=== PATIENT | male | born 1995 | race Two or more races ===

== ENCOUNTER 2020-05-21 00:16 | Emergency (ER) | payer SELFPAY ==
[~2020-05-21] VITALS: Ht 190.5 cm; Wt 100.0 kg
--- NOTE | 2020-05-21 00:55 | NUR ---
pt in bed, dressed in gown, family at bedside. IV started in RAC, cultures and labs drawn. XRAY at bedside, followed by lab. IV fluids initiated. Pt resting at this time, denies any needs or concerns, call light in reach.
[2020-05-21] MEDS ORDERED: KETOROLAC 30 MG/1 ML IVPush ONE (01:00)
[2020-05-21] MEDS ORDERED: SODIUM CHLORIDE 0.9% 1,000ML IVBOLUS ONE (01:00)
[2020-05-21 01:27] LABS: BASOPHILS % (AUTO) 0 % (0-1); EOSINOPHILS % (AUTO) 0 % (1-7); LYMPHOCYTES % (AUTO) 9 % (22-44); MEAN CORPUSCULAR HEMOGLOBIN 31.8 pg (27.5-34.5); MEAN CORPUSCULAR HGB CONC 34.5 g/dL (33.2-36.2); MEAN PLATELET VOLUME 10.5 fL (7.4-10.4); MONOCYTES % (AUTO) 11 % (2-9); NEUTROPHILS % (AUTO) 80 % (42-75); PLATELET COUNT 88 x10^3/uL (130-400); RED BLOOD COUNT 4.81 x10^6/uL (4.38-5.82)
[2020-05-21 01:34] LABS: ALANINE AMINOTRANSFERASE 58 U/L (12-78); ALBUMIN 3.3 g/dL (3.4-5.0); ANION GAP 9 mmol/L (5-15); CALCIUM 8.7 mg/dL (8.5-10.1); CHLORIDE 97 mmol/L (98-107); CREATININE 1.05 mg/dL (0.7-1.3)
--- NOTE | 2020-05-21 01:34 | NUR ---
PT RESTING IN BED, FAMILY AT BEDSIDE. DENIES ANY NEEDS OR CONCERNS AT THIS TIME, CALL LIGHT IN REACH. PULSE 105 AFTER FIRST LITER BOLUS.
[2020-05-21 01:38] LABS: ALKALINE PHOSPHATASE 121 U/L (45-117); BILIRUBIN,TOTAL 0.8 mg/dL (0.2-1.0); TOTAL PROTEIN 7.2 g/dL (6.4-8.2); TROPONIN I < 0.015 ng/mL (0.000-0.045)
[2020-05-21 01:45] LABS: MD NO
[2020-05-21] MEDS ORDERED: KETOROLAC 30 MG/1 ML ONE (02:07)
--- NOTE | 2020-05-21 02:41 | NUR ---
BREAK RN; RE-EVALUATION DONE. PATIENT DISCHARGED WITH PRESCRIPTION AND INSTRUCTION. VERBALIZED UNDERSTANDING.
[2020-05-21 02:42] VITALS: BP 129/71
--- NOTE | 2020-05-21 16:46 | NUR ---
ATTEMPT TO CONTACT PT AT [phone] FOR POSITIVE BLOOD CULTURE RESULT, NO ANSWER AND UNABLE TO LEAVE VM DUE TO MAILBOX NOT SET UP.
--- NOTE | 2020-05-24 08:20 | NUR ---
3RD ATTEMPT TO CONTACT PT REGARDING POSITIVE BLOOD CULURES AND NEED TO RETURN TO ED. LETTER SENT TO ADDRESS ON FILE.
== END 2020-05-21 02:48 | disposition home or self-care (01) ==
LOC: ED 02:15
DX: E86.0 Dehydration (principal); E87.1 Hypo-osmolality and hyponatremia; R00.0 Tachycardia, unspecified; M79.10 Myalgia, unspecified site; Z87.891 Personal history of nicotine dependence
CPT/HCPCS: 36415; 71045; 80053; 83605; 84145; 84484; 85025; 87040; 87077; 93005; 96361; 96374; 99285; J1885; J7030; 87186

== ENCOUNTER 2020-05-24 12:15 | Inpatient (IN) | payer OTHER ==
[~2020-05-24] VITALS: Ht 193 cm; Wt 89.8 kg
[2020-05-24] MEDS ORDERED: ACETAMINOPHEN 500 MG TABLET ONE (12:29)
--- NOTE | 2020-05-24 12:32 | NUR ---
PT MEDICATED W/ 1000MG TYLENOL PO, VERBAL ORDER RECEIVED FROM .
[2020-05-24] MEDS ORDERED: CEFTRIAXONE PMX 1GM/50ML 50 ML ONE (12:42)
--- NOTE | 2020-05-24 12:57 | NUR ---
PT C/O CHEST PAIN, HEADACHE, HEART RACING, AND FEVER X 10 DAYS. PT WAS SEEN AT ED AND WAS DISCHARGED. PT DOES NOT REMEMBER WHAT HE WAS TOLD ON THAT VISIT AND HIS MOM HAS THE PAPERWORK. PT WAS NEGATIVE FOR COVID 10 DAYS AGO. PT DENIES SOB.
--- NOTE | 2020-05-24 12:59 | NUR ---
PT MEDICATED PER MAR
[2020-05-24] MEDS ORDERED: CEFTRIAXONE PMX 1GM/50ML 50 ML IVPB ONE (13:00)
[2020-05-24] MEDS ORDERED: SODIUM CHLORIDE 0.9% 1,000ML IVBOLUS ONE (13:00)
[2020-05-24] MEDS ORDERED: SODIUM CHLORIDE FLUSH 10ML SYR IVF ONE (13:00)
[2020-05-24] MEDS ORDERED: ACETAMINOPHEN 500 MG TABLET PO ONE (13:00)
[2020-05-24 13:07] LABS: BASOPHILS % (AUTO) 0 % (0-1); EOSINOPHILS % (AUTO) 0 % (1-7); LYMPHOCYTES % (AUTO) 9 % (22-44); MEAN CORPUSCULAR HEMOGLOBIN 31.4 pg (27.5-34.5); MEAN CORPUSCULAR HGB CONC 33.8 g/dL (33.2-36.2); MEAN PLATELET VOLUME 9.2 fL (7.4-10.4); MONOCYTES % (AUTO) 17 % (2-9); NEUTROPHILS % (AUTO) 74 % (42-75); PLATELET COUNT 282 x10^3/uL (130-400); RED BLOOD COUNT 4.65 x10^6/uL (4.38-5.82); RED CELL DISTRIBUTION WIDTH 13.8 % (9.4-14.8)
[2020-05-24 13:13] LABS: ALANINE AMINOTRANSFERASE 63 U/L (12-78); ALBUMIN 2.8 g/dL (3.4-5.0); ANION GAP 4 mmol/L (5-15); CALCIUM 8.4 mg/dL (8.5-10.1); CHLORIDE 103 mmol/L (98-107); CREATININE 1.02 mg/dL (0.7-1.3)
[2020-05-24 13:18] LABS: ALKALINE PHOSPHATASE 219 U/L (45-117); BILIRUBIN,TOTAL 0.7 mg/dL (0.2-1.0); TOTAL PROTEIN 6.9 g/dL (6.4-8.2); TROPONIN I < 0.015 ng/mL (0.000-0.045)
[2020-05-24 13:38] LABS: MD SCAN
[2020-05-24] MEDS ORDERED: KETOROLAC 30 MG/1 ML IVPush ONE (14:00)
--- NOTE | 2020-05-24 14:28 | NUR ---
Received report from Camille. patient is sleeping, vital signs stable.
--- NOTE | 2020-05-24 15:40 | NUR ---
CALLED EDELMIRA TROY TO REPORT BP 87/45. ORDERS GIVEN FOR 1L NS BOLUS THEN CONTINUE WITH MAINTENANCE FLUIDS (ALREADY ORDERED).
[2020-05-24 15:46] LABS: D-DIMER (DIC) 0.84 ug/mlFEU (0.00-0.52)
[2020-05-24] MEDS: SODIUM CHLORIDE 0.9% 1,000 ML IV SCH ×8 (15:57→23:00)
[2020-05-24] MEDS ORDERED: SODIUM CHLORIDE 0.9% 1,000 ML IV SCH (16:00)
[2020-05-24] MEDS ORDERED: ONDANSETRON 2MG/ML, 2ML IVPush PRN (16:00)
[2020-05-24] MEDS ORDERED: ONDANSETRON ODT 4 MG PO PRN (16:00)
--- NOTE | 2020-05-24 16:00 | NUR ---
REASSUMED CARE OF PT. 2000 ML BOLUS COMPLETE.
[2020-05-24 16:10] LABS: HCT (SEDRATE) 43.2 % (39.2-51.8)
[2020-05-24] MEDS ORDERED: ENOXAPARIN 40 MG/0.4 ML ONE (16:10)
[2020-05-24] MEDS ORDERED: ASCORBIC ACID 500 MG TABLET ONE ×2 (16:10→16:15)
[2020-05-24] MEDS: ASCORBIC ACID 500 MG TABLET PO SCH (16:12)
[2020-05-24] MEDS: ENOXAPARIN 40 MG/0.4 ML SQ SCH (16:13)
[2020-05-24 16:16] LABS: MICROSCOPIC NOT IND
[2020-05-24] MEDS ORDERED: NICOTINE 21 MG/24 HR PATCH.TD24 TD ONE (16:30)
--- NOTE | 2020-05-24 16:30 | NUR ---
OFF THE FLOOR TO XRAY
[2020-05-24] MEDS ORDERED: OMNIPAQUE 350 MG/ML, 75ML BOTTLE ONE (16:49)
--- NOTE | 2020-05-24 16:57 | NUR ---
SPOKE WITH PROVIDER SYDNI AND THE PT IS BEING PLACED ON [place].
[2020-05-24] MEDS ORDERED: VANCOMYCIN 2,500 MG in SODIUM CHLORIDE 0.9% 500 ML IV ONE (17:00)
[2020-05-24] MEDS ORDERED: VANCOMYCIN PER PHARMACY MC PRN (17:00)
[2020-05-24] MEDS ORDERED: PIPERACILLIN/TAZO/PMX 3.375GM 50 ML IV SCH (17:00)
--- NOTE | 2020-05-24 17:05 | NUR ---
SPOKE WITH HOSPITALIST ABOUT PT'S FLUCTUATION IN BP AND SEPSIS PROTOCOL. HOSPITALIST ORDERING ABX.
[2020-05-24] MEDS ORDERED: NICOTINE 21 MG/24 HR PATCH.TD24 ONE (17:09)
--- NOTE | 2020-05-24 17:24 | NUR ---
PT MEDICATED PER MAR. PT REFUSING NICOTINE PATCH.
[2020-05-24] MEDS ORDERED: PHARMACOKINETIC MONITORING MC PRN (17:30)
[2020-05-24 17:46] LABS: AMPHETAMINE SCREEN, URINE Negative (Negative); BARBITURATE SCREEN, URINE Negative (Negative); BENZODIAZEPINE SCREEN, URINE Negative (Negative); CANNABINOID SCREEN, URINE Negative (Negative); COCAINE SCREEN, URINE Negative (Negative); METHADONE SCREEN, URINE Negative (Negative); OPIATE SCREEN, URINE Negative (Negative)
[2020-05-24] MEDS ORDERED: CEFAZOLIN 2,000 MG in SODIUM CHLORIDE 0.9% 50 ML IV SCH (18:30)
--- NOTE | 2020-05-24 19:00 | NUR ---
Report received from NELLY Graham. This RN to assume care. Meds to be admin.
[2020-05-24] MEDS: CEFAZOLIN PMX 2GM/50ML 50 ML IVPB SCH (19:15)
--- NOTE | 2020-05-24 19:15 | NUR ---
Meds admin per jul. Patient c/o restlessness and fatigue. Patient states he has not slept in three days. Contacted hospitalist for sleep aid.
--- NOTE | 2020-05-24 20:15 | NUR ---
Patient sleeping in gurney. Respirations even and unlabored.
[2020-05-24] MEDS ORDERED: MELATONIN 5 MG TABLET ONE (20:23)
[2020-05-24] MEDS: MELATONIN 5 MG TABLET PO SCH (21:52)
--- NOTE | 2020-05-24 21:52 | NUR ---
Admin meds per jul. Provided water. No other needs at this time. Requested hospital bed.
--- NOTE | 2020-05-24 23:15 | NUR ---
Patient sleeping in gurney. Respirations even and unlabored.
--- NOTE | 2020-05-25 00:55 | NUR ---
Patient sleeping in gurney. Respirations even and unlabored.
[2020-05-25] MEDS: SODIUM CHLORIDE 0.9% 1,000 ML IV SCH ×10 (01:00→09:00)
--- NOTE | 2020-05-25 01:39 | NUR ---
break rn: pt resting on hospital bed, nad, eyes closed, even and unlabored respirations noted at this time. lights off for comfort, bed in lowest, call light next to pt, [facility]. waiting for admit bed
--- NOTE | 2020-05-25 02:40 | NUR ---
Patient restless in [facility]. Respirations even and unlabored. Awaiting hospital bed.
[2020-05-25] MEDS: CEFAZOLIN PMX 2GM/50ML 50 ML IVPB SCH ×3 (02:48→17:52)
[2020-05-25] MEDS ORDERED: ACETAMINOPHEN 325 MG TABLET ONE (03:24)
[2020-05-25] MEDS: ACETAMINOPHEN 325 MG TABLET PO PRN ×3 (03:27→16:20)
--- NOTE | 2020-05-25 03:45 | NUR ---
Transferred patient to hospital bed. Patient skin hot. Fever noted. Meds admin per jul. Water provided.
--- NOTE | 2020-05-25 04:02 | NUR ---
Critical lab- + blood cultures in both bottles. Gram + cocci in clusters
[2020-05-25 05:37] LABS: BASOPHILS % (AUTO) 0 % (0-1); EOSINOPHILS % (AUTO) 1 % (1-7); LYMPHOCYTES % (AUTO) 11 % (22-44); MEAN CORPUSCULAR HEMOGLOBIN 31.8 pg (27.5-34.5); MEAN CORPUSCULAR HGB CONC 34.1 g/dL (33.2-36.2); MEAN PLATELET VOLUME 8.4 fL (7.4-10.4); MONOCYTES % (AUTO) 17 % (2-9); NEUTROPHILS % (AUTO) 71 % (42-75); PLATELET COUNT 221 x10^3/uL (130-400); RED BLOOD COUNT 3.92 x10^6/uL (4.38-5.82); RED CELL DISTRIBUTION WIDTH 13.7 % (9.4-14.8)
[2020-05-25 05:43] LABS: ALBUMIN 2.3 g/dL (3.4-5.0); ANION GAP 5 mmol/L (5-15); CALCIUM 7.9 mg/dL (8.5-10.1); CHLORIDE 106 mmol/L (98-107)
[2020-05-25 05:49] LABS: ALANINE AMINOTRANSFERASE 41 U/L (12-78); ALKALINE PHOSPHATASE 162 U/L (45-117); BILIRUBIN,TOTAL 0.7 mg/dL (0.2-1.0); CREATININE 0.92 mg/dL (0.7-1.3); TOTAL PROTEIN 5.8 g/dL (6.4-8.2)
[2020-05-25 06:18] LABS: MD SCAN
--- NOTE | 2020-05-25 07:11 | NUR ---
REPORT FROM JQ, ASSUME CARE OF PT AT THIS TIME.
[2020-05-25] MEDS ORDERED: SODIUM CHLORIDE 0.9% 1,000 ML IV SCH (07:30)
--- NOTE | 2020-05-25 07:30 | NUR ---
REPORT TO RN, PT READY TO BE TRANSPORTED TO [facility]
--- NOTE | 2020-05-25 08:11 | NUR ---
CALL FROM LAB REGARDING +BLOOD CULTURE. CALL TO FLOOR TO NOTIFY, CULTURE RESULT REPORTED TO ISI VILLEGAS.
[2020-05-25] MEDS: CHOLECALCIFEROL 5,000u TAB PO SCH (08:40)
[2020-05-25] MEDS: ASCORBIC ACID 500 MG TABLET PO SCH ×2 (08:40→16:20)
[2020-05-25] MEDS: ZINC SULFATE 220 MG CAPSULE PO SCH (08:41)
[2020-05-25 08:46] VITALS: BP 147/70
[2020-05-25 09:13] VITALS: BP 147/70
[2020-05-25 13:29] VITALS: BP 103/58
[2020-05-25] MEDS: ENOXAPARIN 40 MG/0.4 ML SQ SCH (15:29)
[2020-05-25 17:57] VITALS: BP 112/53
[2020-05-25 20:06] VITALS: BP 117/60
[2020-05-25] MEDS: MELATONIN 5 MG TABLET PO SCH (20:08)
[2020-05-26 02:08] VITALS: BP 133/55
[2020-05-26] MEDS: ACETAMINOPHEN 325 MG TABLET PO PRN ×3 (02:19→18:01)
[2020-05-26] MEDS: SODIUM CHLORIDE 0.9% 1,000 ML IV SCH ×3 (02:19→18:02)
[2020-05-26] MEDS: CEFAZOLIN PMX 2GM/50ML 50 ML IVPB SCH ×3 (02:45→18:02)
[2020-05-26 08:13] VITALS: BP 127/73
[2020-05-26] MEDS: ASCORBIC ACID 500 MG TABLET PO SCH ×2 (11:04→15:27)
[2020-05-26] MEDS: CHOLECALCIFEROL 5,000u TAB PO SCH (11:04)
[2020-05-26] MEDS: ZINC SULFATE 220 MG CAPSULE PO SCH (11:04)
[2020-05-26 13:35] VITALS: BP 110/54
[2020-05-26] MEDS: ENOXAPARIN 40 MG/0.4 ML SQ SCH (15:27)
[2020-05-26] MEDS: MELATONIN 5 MG TABLET PO SCH (20:29)
[2020-05-26 20:34] VITALS: BP 144/52
[2020-05-27 00:20] VITALS: BP 139/53
[2020-05-27] MEDS: ACETAMINOPHEN 325 MG TABLET PO PRN ×2 (00:21→11:25)
[2020-05-27] MEDS: CEFAZOLIN PMX 2GM/50ML 50 ML IVPB SCH ×3 (02:17→19:48)
[2020-05-27] MEDS: SODIUM CHLORIDE 0.9% 1,000 ML IV SCH ×3 (02:17→19:48)
[2020-05-27 05:11] LABS: BASOPHILS % (AUTO) 0 % (0-1); EOSINOPHILS % (AUTO) 0 % (1-7); LYMPHOCYTES % (AUTO) 13 % (22-44); MEAN CORPUSCULAR HEMOGLOBIN 31.3 pg (27.5-34.5); MEAN CORPUSCULAR HGB CONC 33.2 g/dL (33.2-36.2); MEAN PLATELET VOLUME 7.8 fL (7.4-10.4); MONOCYTES % (AUTO) 13 % (2-9); NEUTROPHILS % (AUTO) 73 % (42-75); PLATELET COUNT 246 x10^3/uL (130-400); RED BLOOD COUNT 3.91 x10^6/uL (4.38-5.82); RED CELL DISTRIBUTION WIDTH 13.5 % (9.4-14.8)
[2020-05-27 05:19] LABS: ANION GAP 5 mmol/L (5-15); CALCIUM 8.2 mg/dL (8.5-10.1); CHLORIDE 106 mmol/L (98-107); CREATININE 0.92 mg/dL (0.7-1.3)
[2020-05-27 05:49] LABS: MD SCAN
[2020-05-27 08:58] VITALS: BP 133/56
[2020-05-27] MEDS: KETOROLAC 30 MG/1 ML IV PRN (10:53)
[2020-05-27] MEDS: CHOLECALCIFEROL 5,000u TAB PO SCH (11:24)
[2020-05-27] MEDS: ASCORBIC ACID 500 MG TABLET PO SCH ×2 (11:24→16:33)
[2020-05-27] MEDS: ZINC SULFATE 220 MG CAPSULE PO SCH (11:25)
[2020-05-27 14:20] VITALS: BP 103/57
[2020-05-27] MEDS: ENOXAPARIN 40 MG/0.4 ML SQ SCH (16:33)
[2020-05-27 19:22] VITALS: BP 109/62
[2020-05-27] MEDS: MELATONIN 5 MG TABLET PO SCH (19:56)
[2020-05-28 01:30] VITALS: BP 100/51
[2020-05-28] MEDS: CEFAZOLIN PMX 2GM/50ML 50 ML IVPB SCH ×3 (03:36→19:43)
[2020-05-28] MEDS: SODIUM CHLORIDE 0.9% 1,000 ML IV SCH ×3 (03:36→19:43)
[2020-05-28 06:39] LABS: BASOPHILS % (AUTO) 0 % (0-1); EOSINOPHILS % (AUTO) 0 % (1-7); LYMPHOCYTES % (AUTO) 12 % (22-44); MEAN CORPUSCULAR HEMOGLOBIN 31.3 pg (27.5-34.5); MEAN CORPUSCULAR HGB CONC 33.4 g/dL (33.2-36.2); MEAN PLATELET VOLUME 7.8 fL (7.4-10.4); MONOCYTES % (AUTO) 10 % (2-9); NEUTROPHILS % (AUTO) 78 % (42-75); PLATELET COUNT 260 x10^3/uL (130-400); RED BLOOD COUNT 3.81 x10^6/uL (4.38-5.82); RED CELL DISTRIBUTION WIDTH 13.7 % (9.4-14.8)
[2020-05-28 06:47] LABS: ANION GAP 6 mmol/L (5-15); CALCIUM 8.3 mg/dL (8.5-10.1); CHLORIDE 108 mmol/L (98-107); CREATININE 0.79 mg/dL (0.7-1.3)
[2020-05-28 06:54] LABS: MD NO
[2020-05-28] MEDS: CHOLECALCIFEROL 5,000u TAB PO SCH (08:54)
[2020-05-28] MEDS: ASCORBIC ACID 500 MG TABLET PO SCH ×2 (08:54→16:36)
[2020-05-28] MEDS: ZINC SULFATE 220 MG CAPSULE PO SCH (08:54)
[2020-05-28 09:01] VITALS: BP 116/51
[2020-05-28 13:48] VITALS: BP 117/55
[2020-05-28] MEDS: ENOXAPARIN 40 MG/0.4 ML SQ SCH (16:00)
[2020-05-28] MEDS: MELATONIN 5 MG TABLET PO SCH (19:43)
[2020-05-28 19:46] VITALS: BP 115/64
[2020-05-29 00:57] VITALS: BP 153/82
[2020-05-29] MEDS: CEFAZOLIN PMX 2GM/50ML 50 ML IVPB SCH ×3 (03:08→20:01)
[2020-05-29] MEDS: SODIUM CHLORIDE 0.9% 1,000 ML IV SCH ×3 (03:08→20:02)
[2020-05-29 05:44] LABS: BASOPHILS % (AUTO) 0 % (0-1); EOSINOPHILS % (AUTO) 0 % (1-7); LYMPHOCYTES % (AUTO) 13 % (22-44); MEAN CORPUSCULAR HEMOGLOBIN 31.5 pg (27.5-34.5); MEAN CORPUSCULAR HGB CONC 33.9 g/dL (33.2-36.2); MEAN PLATELET VOLUME 7.8 fL (7.4-10.4); MONOCYTES % (AUTO) 9 % (2-9); NEUTROPHILS % (AUTO) 77 % (42-75); PLATELET COUNT 298 x10^3/uL (130-400); RED BLOOD COUNT 3.91 x10^6/uL (4.38-5.82); RED CELL DISTRIBUTION WIDTH 13.5 % (9.4-14.8)
[2020-05-29 05:49] LABS: MD NO
[2020-05-29 05:52] LABS: ANION GAP 6 mmol/L (5-15); CALCIUM 8.9 mg/dL (8.5-10.1); CHLORIDE 107 mmol/L (98-107)
[2020-05-29 05:55] LABS: CREATININE 0.78 mg/dL (0.7-1.3)
[2020-05-29] MEDS: ASCORBIC ACID 500 MG TABLET PO SCH ×2 (08:00→16:03)
[2020-05-29 08:20] VITALS: BP 134/55
[2020-05-29] MEDS: ZINC SULFATE 220 MG CAPSULE PO SCH (09:00)
[2020-05-29] MEDS: CHOLECALCIFEROL 5,000u TAB PO SCH (09:00)
[2020-05-29] MEDS: KETOROLAC 30 MG/1 ML IV PRN (09:22)
[2020-05-29 13:09] VITALS: BP 108/51
[2020-05-29] MEDS: ENOXAPARIN 40 MG/0.4 ML SQ SCH (16:01)
[2020-05-29 19:56] VITALS: BP 122/67
[2020-05-29] MEDS: MELATONIN 5 MG TABLET PO SCH (20:01)
[2020-05-30 01:19] VITALS: BP_SYST 120; BP_SYST 99; BP_DIAS 50; BP_DIAS 68
[2020-05-30] MEDS: SODIUM CHLORIDE 0.9% 1,000 ML IV SCH ×3 (03:16→17:09)
[2020-05-30] MEDS: CEFAZOLIN PMX 2GM/50ML 50 ML IVPB SCH ×3 (03:16→20:41)
[2020-05-30 06:15] LABS: BASOPHILS % (AUTO) 0 % (0-1); EOSINOPHILS % (AUTO) 1 % (1-7); LYMPHOCYTES % (AUTO) 13 % (22-44); MEAN CORPUSCULAR HGB CONC 34.2 g/dL (33.2-36.2); MEAN PLATELET VOLUME 7.9 fL (7.4-10.4); MONOCYTES % (AUTO) 8 % (2-9); NEUTROPHILS % (AUTO) 79 % (42-75); PLATELET COUNT 285 x10^3/uL (130-400); RED BLOOD COUNT 3.65 x10^6/uL (4.38-5.82); RED CELL DISTRIBUTION WIDTH 13.4 % (9.4-14.8)
[2020-05-30 06:18] LABS: ANION GAP 5 mmol/L (5-15); CALCIUM 8.9 mg/dL (8.5-10.1); CHLORIDE 109 mmol/L (98-107); CREATININE 0.76 mg/dL (0.7-1.3)
[2020-05-30 06:49] LABS: MD NO
[2020-05-30 07:30] VITALS: BP 135/55
[2020-05-30] MEDS: ASCORBIC ACID 500 MG TABLET PO SCH ×2 (08:00→15:38)
[2020-05-30] MEDS ORDERED: SODIUM CHLORIDE 0.9% 1,000 ML IV ONE (08:00)
[2020-05-30] MEDS: CHOLECALCIFEROL 5,000u TAB PO SCH (09:00)
[2020-05-30] MEDS: ZINC SULFATE 220 MG CAPSULE PO SCH (09:00)
[2020-05-30] MEDS ORDERED: PROPOFOL 10 MG/ML, 20ML ONE (13:12)
[2020-05-30 14:30] VITALS: BP 114/54
[2020-05-30] MEDS: ENOXAPARIN 40 MG/0.4 ML SQ SCH (15:39)
[2020-05-30] MEDS ORDERED: OMNIPAQUE 350 MG/ML, 150 ML BOTTLE ONE (17:00)
[2020-05-30 17:56] VITALS: BP 119/70
[2020-05-30 19:32] VITALS: BP 105/55
[2020-05-30] MEDS: MELATONIN 5 MG TABLET PO SCH (20:40)
[2020-05-31 02:01] VITALS: BP 96/52
[2020-05-31] MEDS: CEFAZOLIN PMX 2GM/50ML 50 ML IVPB SCH ×3 (03:31→20:11)
[2020-05-31] MEDS: SODIUM CHLORIDE 0.9% 1,000 ML IV SCH ×3 (03:31→22:59)
[2020-05-31 07:35] VITALS: BP 126/61
[2020-05-31] MEDS: CHOLECALCIFEROL 5,000u TAB PO SCH (08:50)
[2020-05-31] MEDS: ZINC SULFATE 220 MG CAPSULE PO SCH (08:50)
[2020-05-31] MEDS: ASCORBIC ACID 500 MG TABLET PO SCH (08:50)
[2020-05-31 13:05] VITALS: BP 128/54
[2020-05-31 14:00] VITALS: BP 144/70
[2020-05-31] MEDS: ENOXAPARIN 40 MG/0.4 ML SQ SCH (16:46)
[2020-05-31 20:19] VITALS: BP 131/60
[2020-05-31] MEDS ORDERED: MELATONIN 5 MG TABLET PO PRN (21:30)
[2020-06-01 03:56] VITALS: BP 85/44
[2020-06-01] MEDS: CEFAZOLIN PMX 2GM/50ML 50 ML IVPB SCH ×3 (04:08→20:01)
[2020-06-01 05:38] VITALS: BP 125/89
[2020-06-01 05:50] LABS: BASOPHILS % (AUTO) 1 % (0-1); EOSINOPHILS % (AUTO) 1 % (1-7); LYMPHOCYTES % (AUTO) 17 % (22-44); MEAN CORPUSCULAR HEMOGLOBIN 31.7 pg (27.5-34.5); MEAN CORPUSCULAR HGB CONC 33.7 g/dL (33.2-36.2); MEAN PLATELET VOLUME 7.7 fL (7.4-10.4); MONOCYTES % (AUTO) 9 % (2-9); NEUTROPHILS % (AUTO) 73 % (42-75); PLATELET COUNT 303 x10^3/uL (130-400); RED BLOOD COUNT 3.64 x10^6/uL (4.38-5.82); RED CELL DISTRIBUTION WIDTH 13.3 % (9.4-14.8)
[2020-06-01 05:52] LABS: MD NO
[2020-06-01 06:01] LABS: CHLORIDE 106 mmol/L (98-107)
[2020-06-01 06:09] LABS: ALANINE AMINOTRANSFERASE 72 U/L (12-78); ALBUMIN 2.2 g/dL (3.4-5.0); ALKALINE PHOSPHATASE 181 U/L (45-117); ANION GAP 6 mmol/L (5-15); BILIRUBIN,TOTAL 0.4 mg/dL (0.2-1.0); CREATININE 0.82 mg/dL (0.7-1.3); TOTAL PROTEIN 6.2 g/dL (6.4-8.2)
[2020-06-01 06:45] VITALS: BP 121/84
[2020-06-01] MEDS: SODIUM CHLORIDE 0.9% 1,000 ML IV SCH (08:18)
[2020-06-01] MEDS ORDERED: POLYETHYLENE GLYCOL 17 GM PACKET PO PRN (09:00)
[2020-06-01 13:49] VITALS: BP 116/61
[2020-06-01] MEDS: ENOXAPARIN 40 MG/0.4 ML SQ SCH (17:17)
[2020-06-01 19:34] VITALS: BP 102/55
[2020-06-02 01:48] VITALS: BP 110/60
[2020-06-02] MEDS: CEFAZOLIN PMX 2GM/50ML 50 ML IVPB SCH ×3 (04:56→20:22)
[2020-06-02] MEDS: DOCUSATE 100 MG CAPSULE PO PRN (05:01)
[2020-06-02 05:30] LABS: BASOPHILS % (AUTO) 0 % (0-1); EOSINOPHILS % (AUTO) 1 % (1-7); LYMPHOCYTES % (AUTO) 18 % (22-44); MEAN CORPUSCULAR HEMOGLOBIN 31.8 pg (27.5-34.5); MEAN CORPUSCULAR HGB CONC 33.4 g/dL (33.2-36.2); MEAN PLATELET VOLUME 7.7 fL (7.4-10.4); MONOCYTES % (AUTO) 9 % (2-9); NEUTROPHILS % (AUTO) 73 % (42-75); PLATELET COUNT 320 x10^3/uL (130-400); RED BLOOD COUNT 3.75 x10^6/uL (4.38-5.82); RED CELL DISTRIBUTION WIDTH 13.3 % (9.4-14.8)
[2020-06-02 05:31] LABS: MD NO
[2020-06-02 05:44] LABS: ALANINE AMINOTRANSFERASE 74 U/L (12-78); ALBUMIN 2.2 g/dL (3.4-5.0); ANION GAP 3 mmol/L (5-15); CALCIUM 8.9 mg/dL (8.5-10.1); CHLORIDE 109 mmol/L (98-107); CREATININE 0.79 mg/dL (0.7-1.3)
[2020-06-02 05:46] LABS: ALKALINE PHOSPHATASE 187 U/L (45-117); BILIRUBIN,TOTAL 0.3 mg/dL (0.2-1.0); TOTAL PROTEIN 6.5 g/dL (6.4-8.2)
[2020-06-02 07:10] VITALS: BP 113/65
[2020-06-02] MEDS ORDERED: SODIUM CHLORIDE 0.9% 1,000 ML IV SCH (09:30)
[2020-06-02 14:08] VITALS: BP 116/55
[2020-06-02] MEDS: ENOXAPARIN 40 MG/0.4 ML SQ SCH (16:57)
[2020-06-02 20:00] VITALS: BP 122/52
[2020-06-03 02:30] VITALS: BP 110/56
[2020-06-03] MEDS: CEFAZOLIN PMX 2GM/50ML 50 ML IVPB SCH ×3 (03:39→20:20)
[2020-06-03 05:32] LABS: BASOPHILS % (AUTO) 0 % (0-1); EOSINOPHILS % (AUTO) 1 % (1-7); LYMPHOCYTES % (AUTO) 17 % (22-44); MEAN CORPUSCULAR HEMOGLOBIN 31.6 pg (27.5-34.5); MEAN CORPUSCULAR HGB CONC 33.8 g/dL (33.2-36.2); MEAN PLATELET VOLUME 7.6 fL (7.4-10.4); MONOCYTES % (AUTO) 8 % (2-9); NEUTROPHILS % (AUTO) 73 % (42-75); PLATELET COUNT 319 x10^3/uL (130-400); RED BLOOD COUNT 3.75 x10^6/uL (4.38-5.82); RED CELL DISTRIBUTION WIDTH 13.2 % (9.4-14.8)
[2020-06-03 05:33] LABS: MD NO
[2020-06-03 05:36] LABS: HCT (SEDRATE) 34.6 % (39.2-51.8)
[2020-06-03 05:39] LABS: ANION GAP 6 mmol/L (5-15); CALCIUM 9.2 mg/dL (8.5-10.1); CHLORIDE 109 mmol/L (98-107); CREATININE 0.87 mg/dL (0.7-1.3)
[2020-06-03 06:42] VITALS: BP 119/50
[2020-06-03 12:46] VITALS: BP 125/55
[2020-06-03] MEDS: ENOXAPARIN 40 MG/0.4 ML SQ SCH (16:00)
[2020-06-03 20:30] VITALS: BP 134/55
[2020-06-04 00:47] VITALS: BP 113/47
[2020-06-04] MEDS: CEFAZOLIN PMX 2GM/50ML 50 ML IVPB SCH ×3 (03:54→21:13)
[2020-06-04] MEDS: DOCUSATE 100 MG CAPSULE PO PRN (03:58)
[2020-06-04 08:15] VITALS: BP 103/51
[2020-06-04 13:56] VITALS: BP 109/58
[2020-06-04] MEDS: ENOXAPARIN 40 MG/0.4 ML SQ SCH (16:00)
[2020-06-04 20:11] VITALS: BP 106/61
[2020-06-05 03:40] VITALS: BP 93/44
[2020-06-05] MEDS: CEFAZOLIN PMX 2GM/50ML 50 ML IVPB SCH ×3 (04:40→21:24)
[2020-06-05 05:22] VITALS: BP 117/55
[2020-06-05 06:54] VITALS: BP 100/53
[2020-06-05] MEDS: DOCUSATE 100 MG CAPSULE PO PRN (07:30)
[2020-06-05] MEDS ORDERED: INSULIN LISPRO 100 UNITS/ML, PEN SQ-INSULIN SCH (10:00)
[2020-06-05] MEDS ORDERED: CHLORHEXIDINE 15 ML UDC MM PRN (10:00)
[2020-06-05 10:49] LABS: BASOPHILS % (AUTO) 1 % (0-1); EOSINOPHILS % (AUTO) 0 % (1-7); LYMPHOCYTES % (AUTO) 18 % (22-44); MD NO; MEAN CORPUSCULAR HEMOGLOBIN 32.2 pg (27.5-34.5); MEAN CORPUSCULAR HGB CONC 34.4 g/dL (33.2-36.2); MEAN PLATELET VOLUME 7.5 fL (7.4-10.4); MONOCYTES % (AUTO) 8 % (2-9); NEUTROPHILS % (AUTO) 73 % (42-75); PLATELET COUNT 384 x10^3/uL (130-400); RED BLOOD COUNT 3.92 x10^6/uL (4.38-5.82); RED CELL DISTRIBUTION WIDTH 13.2 % (9.4-14.8)
[2020-06-05 10:55] LABS: INTERNATIONAL NORMALIZED RATIO 1.12 (0.93-1.1); PROTHROMBIN TIME 11.9 Seconds (9.6-11.5)
[2020-06-05 11:01] LABS: ALBUMIN 2.7 g/dL (3.4-5.0); ANION GAP 5 mmol/L (5-15); CALCIUM 9.5 mg/dL (8.5-10.1); CHLORIDE 109 mmol/L (98-107)
[2020-06-05 11:05] LABS: ALANINE AMINOTRANSFERASE 64 U/L (12-78); ALKALINE PHOSPHATASE 178 U/L (45-117); BILIRUBIN,TOTAL 0.4 mg/dL (0.2-1.0); CREATININE 0.79 mg/dL (0.7-1.3); TOTAL PROTEIN 7.3 g/dL (6.4-8.2)
[2020-06-05 14:57] LABS: MICROSCOPIC NOT IND
[2020-06-05] MEDS: MUPIROCIN OINT 2%, 22GM TP SCH (21:24)
[2020-06-05] MEDS: SODIUM CHLORIDE FLUSH 10ML SYR IVF SCH (21:24)
[2020-06-05 21:34] VITALS: BP 98/57
[2020-06-06] MEDS: CEFAZOLIN PMX 2GM/50ML 50 ML IVPB SCH (04:00)
[2020-06-06 04:13] VITALS: BP 116/52
[2020-06-06 04:15] VITALS: BP 102/53
[2020-06-06] MEDS: DAPTOMYCIN 750 MG in SODIUM CHLORIDE 0.9% 100 ML IV SCH (05:22)
[2020-06-06] MEDS: MUPIROCIN OINT 2%, 22GM TP SCH (05:22)
[2020-06-06] MEDS ORDERED: PHENYLEPHRINE 10 MG/ML ONE (06:38)
[2020-06-06] MEDS ORDERED: EPINEPHRINE 1 MG/ML, 1ML ONE (06:38)
[2020-06-06] MEDS ORDERED: MIDAZOLAM 10MG/2 ML ONE (06:39)
[2020-06-06] MEDS ORDERED: FENTANYL PF 250 MCG/5ML ONE ×4 (06:39)
[2020-06-06] MEDS ORDERED: MANNITOL PMX 20% 500 ML IVPB PRN (07:30)
[2020-06-06] MEDS ORDERED: PHENYLEPHRINE 50 MG in SODIUM CHLORIDE 0.9% 245 ML IV PRN ×2 (07:30→14:00)
[2020-06-06] MEDS ORDERED: REGULAR INSULIN 100 UNITS in SODIUM CHLORIDE 0.9% 99 ML IV PRN ×2 (07:30→14:00)
[2020-06-06] MEDS ORDERED: VANCOMYCIN 1,400 MG in SODIUM CHLORIDE 0.9% 250 ML IVPB PRN (07:30)
[2020-06-06] MEDS ORDERED: ALBUMIN HUMAN 5% 500 ML IV PRN (07:30)
[2020-06-06] MEDS ORDERED: EPINEPHRINE 5 MG in SODIUM CHLORIDE 0.9% 245 ML IV PRN ×2 (07:30→14:00)
[2020-06-06] MEDS ORDERED: DEXMEDETOMIDINE 200 MCG in SODIUM CHLORIDE 0.9% 48 ML IV PRN ×2 (07:30→14:00)
[2020-06-06] MEDS ORDERED: POTASSIUM CHLORIDE 80 MEQ, SODIUM BICARBONATE 8.4% 10 MEQ, MAGNESIUM SULFATE 0.5 GM, LI... IV PRN (07:30)
[2020-06-06] MEDS ORDERED: CEFUROXIME 1.5 GM in SODIUM CHLORIDE 0.9% 50 ML IVPB PRN (07:30)
[2020-06-06] MEDS ORDERED: NOREPINEPHRINE 8 MG in SODIUM CHLORIDE 0.9% 242 ML IV PRN (08:30)
[2020-06-06] MEDS ORDERED: ROCURONIUM 10MG/ML,5ML ONE ×2 (08:30→10:25)
[2020-06-06] MEDS ORDERED: AMINOCAPROIC ACID 250 MG/ML, 20ML ONE ×2 (08:31)
[2020-06-06] MEDS ORDERED: PROPOFOL 10 MG/ML, 20ML ONE (08:31)
[2020-06-06] MEDS ORDERED: AMIODARONE 50 MG/ML, 3ML ONE ×2 (08:55→11:32)
[2020-06-06] MEDS ORDERED: PROTAMINE SULFATE 10 MG/ML, 25ML ONE ×2 (09:05)
[2020-06-06] MEDS: SODIUM CHLORIDE FLUSH 10ML SYR IVF SCH (10:27)
[2020-06-06] MEDS ORDERED: SODIUM BICARB 8.4%, 50ML SYRINGE ONE (12:09)
[2020-06-06 12:58] LABS: GLUCOSE BY BLOOD GAS ANALYZER 151 mg/dL (70-110); HEMOGLOBIN BY BLOOD GAS ANALYZ 10.5 g/dL (14.0-18.0); POTASSIUM BY BLOOD GAS ANALYZR 3.8 mmol/L (3.6-5.5)
[2020-06-06] MEDS ORDERED: ALBUMIN HUMAN 25% 50 ML ONE (13:04)
[2020-06-06] MEDS ORDERED: HEPARIN 1,000 UNITS/ML, 30ML ONE (13:04)
[2020-06-06] MEDS ORDERED: methylPREDNISolone SOD SUCC 125 MG/2 ML ONE (13:04)
[2020-06-06] MEDS ORDERED: LIDOCAINE-MPF 2% ,5ML ONE (13:04)
[2020-06-06 13:08] LABS: INTERNATIONAL NORMALIZED RATIO 1.36 (0.93-1.1); PROTHROMBIN TIME 14.4 Seconds (9.6-11.5)
[2020-06-06] MEDS ORDERED: DOBUTAMINE 250 MG in SODIUM CHLORIDE 0.9% 230 ML IV PRN (14:00)
[2020-06-06] MEDS ORDERED: VASOPRESSIN 20 UNIT in SODIUM CHLORIDE 0.9% 99 ML IV PRN (14:00)
[2020-06-06] MEDS ORDERED: FENTANYL PF 100 MCG/2ML IVPush PRN (14:00)
[2020-06-06] MEDS ORDERED: POTASSIUM CHLORIDE PMX 100 ML IV ONE (14:00)
[2020-06-06] MEDS ORDERED: BISACODYL 5 MG EC TABLET PO PRN (14:00)
[2020-06-06] MEDS ORDERED: SODIUM CHLORIDE 0.9% 1,000 ML IV PRN (14:00)
[2020-06-06] MEDS ORDERED: ACETAMINOPHEN 650 MG SUPP PR PRN (14:00)
[2020-06-06] MEDS ORDERED: INSULIN REGULAR 100 UNITS/ML, 3ML VIAL IVPush PRN (14:00)
[2020-06-06] MEDS ORDERED: ACETAMINOPHEN 325 MG TABLET PO PRN (14:00)
[2020-06-06] MEDS ORDERED: NITROGLYCERIN/D5W PMX 250 ML IV PRN (14:00)
[2020-06-06] MEDS ORDERED: BISACODYL 10 MG SUPP PR PRN (14:00)
[2020-06-06] MEDS ORDERED: MIDAZOLAM 1 MG/ML, 5ML IVPush PRN (14:00)
[2020-06-06] MEDS ORDERED: LACTATED RINGERS 1,000 ML IV PRN (14:00)
[2020-06-06] MEDS: KSCALE TO 4.5 IV SCH ×2 (14:00→19:59)
[2020-06-06] MEDS ORDERED: SODIUM BICARB 8.4%, 50ML SYRINGE IV PRN (14:00)
[2020-06-06] MEDS: DOCUSATE 100 MG CAPSULE PO SCH ×2 (14:29→21:09)
[2020-06-06] MEDS ORDERED: ALBUTEROL HFA 90 MCG/SPRAY INH PRN (15:00)
[2020-06-06] MEDS: OXYcodone IR 5MG TABLET PO PRN ×2 (15:33→19:29)
[2020-06-06] MEDS ORDERED: INSULIN LISPRO 100 UNITS/ML, PEN SQ-INSULIN SCH (16:00)
[2020-06-06] MEDS: MAGNESIUM SULFATE 1 GM in SODIUM CHLORIDE 0.9% 100 ML IVPB SCH (16:42)
[2020-06-06] MEDS: HYDROcodone/APAP 10/325 MG TABLET PO PRN ×2 (16:55→22:04)
[2020-06-06] MEDS: CEFUROXIME 1.5 GM in SODIUM CHLORIDE 0.9% 50 ML IVPB SCH (19:24)
[2020-06-06] MEDS: INSULIN LISPRO 100 UNITS/ML, PEN SQ-INSULIN SCH (20:00)
[2020-06-06] MEDS: VANCOMYCIN 1,400 MG in SODIUM CHLORIDE 0.9% 250 ML IVPB SCH (20:10)
[2020-06-06] MEDS: MUPIROCIN OINT 2%, 22GM NAS SCH (21:10)
[2020-06-07] MEDS: OXYcodone IR 5MG TABLET PO PRN ×3 (00:07→18:47)
[2020-06-07] MEDS: HYDROcodone/APAP 10/325 MG TABLET PO PRN ×2 (02:58→07:32)
[2020-06-07] MEDS: INSULIN LISPRO 100 UNITS/ML, PEN SQ-INSULIN SCH ×6 (04:00→20:00)
[2020-06-07] MEDS: DAPTOMYCIN 750 MG in SODIUM CHLORIDE 0.9% 100 ML IV SCH (04:36)
[2020-06-07 04:39] LABS: BASOPHILS % (AUTO) 0 % (0-1); EOSINOPHILS % (AUTO) 0 % (1-7); LYMPHOCYTES % (AUTO) 12 % (22-44); MEAN CORPUSCULAR HEMOGLOBIN 31.6 pg (27.5-34.5); MEAN CORPUSCULAR HGB CONC 33.6 g/dL (33.2-36.2); MEAN PLATELET VOLUME 7.6 fL (7.4-10.4); MONOCYTES % (AUTO) 10 % (2-9); NEUTROPHILS % (AUTO) 78 % (42-75); PLATELET COUNT 238 x10^3/uL (130-400); RED BLOOD COUNT 2.92 x10^6/uL (4.38-5.82); RED CELL DISTRIBUTION WIDTH 13.2 % (9.4-14.8)
[2020-06-07 04:43] LABS: MD NO
[2020-06-07 04:50] LABS: ALBUMIN 2.5 g/dL (3.4-5.0); ANION GAP 6 mmol/L (5-15); CALCIUM 8.4 mg/dL (8.5-10.1); CHLORIDE 108 mmol/L (98-107); CREATININE 0.59 mg/dL (0.7-1.3)
[2020-06-07 04:51] LABS: INTERNATIONAL NORMALIZED RATIO 1.19 (0.93-1.1); PROTHROMBIN TIME 12.6 Seconds (9.6-11.5)
[2020-06-07] MEDS: KSCALE TO 4.5 IV SCH ×2 (05:46)
[2020-06-07 06:00] VITALS: BP 114/61
[2020-06-07] MEDS: CEFUROXIME 1.5 GM in SODIUM CHLORIDE 0.9% 50 ML IVPB SCH (07:07)
[2020-06-07] MEDS: VANCOMYCIN 1,400 MG in SODIUM CHLORIDE 0.9% 250 ML IVPB SCH (08:28)
[2020-06-07] MEDS: MUPIROCIN OINT 2%, 22GM NAS SCH ×2 (08:29→21:15)
[2020-06-07] MEDS: DOCUSATE 100 MG CAPSULE PO SCH ×2 (08:29→21:15)
[2020-06-07] MEDS: ASPIRIN 81 MG TABLET EC PO SCH (08:29)
[2020-06-07] MEDS: CARVEDILOL 3.125 MG TABLET PO SCH ×2 (08:31→18:38)
[2020-06-07] MEDS: KETOROLAC 30 MG/1 ML IVPush SCH ×3 (08:58→21:14)
[2020-06-07] MEDS: CLOPIDOGREL 75 MG TABLET PO SCH (09:21)
[2020-06-07] MEDS: MAGNESIUM SULFATE 1 GM in SODIUM CHLORIDE 0.9% 100 ML IVPB SCH (15:38)
[2020-06-07] MEDS: CHLORHEXIDINE 15 ML UDC MM SCH (21:15)
[2020-06-08] MEDS: KETOROLAC 30 MG/1 ML IVPush SCH ×4 (03:16→21:25)
[2020-06-08] MEDS: INSULIN LISPRO 100 UNITS/ML, PEN SQ-INSULIN SCH ×6 (04:00→21:33)
[2020-06-08] MEDS: DAPTOMYCIN 750 MG in SODIUM CHLORIDE 0.9% 100 ML IV SCH (04:13)
[2020-06-08 04:47] LABS: BASOPHILS % (AUTO) 0 % (0-1); EOSINOPHILS % (AUTO) 1 % (1-7); LYMPHOCYTES % (AUTO) 22 % (22-44); MEAN CORPUSCULAR HEMOGLOBIN 31.5 pg (27.5-34.5); MEAN CORPUSCULAR HGB CONC 33.4 g/dL (33.2-36.2); MEAN PLATELET VOLUME 7.8 fL (7.4-10.4); MONOCYTES % (AUTO) 9 % (2-9); NEUTROPHILS % (AUTO) 68 % (42-75); PLATELET COUNT 199 x10^3/uL (130-400); RED BLOOD COUNT 2.55 x10^6/uL (4.38-5.82); RED CELL DISTRIBUTION WIDTH 12.7 % (9.4-14.8)
[2020-06-08 04:48] LABS: INTERNATIONAL NORMALIZED RATIO 1.1 (0.93-1.1); PROTHROMBIN TIME 11.7 Seconds (9.6-11.5)
[2020-06-08 04:50] LABS: ANION GAP 4 mmol/L (5-15); CALCIUM 8.8 mg/dL (8.5-10.1); CHLORIDE 107 mmol/L (98-107); CREATININE 0.76 mg/dL (0.7-1.3)
[2020-06-08 04:53] LABS: MD NO
[2020-06-08 06:00] VITALS: BP 97/53
[2020-06-08] MEDS: CARVEDILOL 3.125 MG TABLET PO SCH ×3 (06:21→18:28)
[2020-06-08] MEDS: OXYcodone IR 5MG TABLET PO PRN (06:36)
[2020-06-08] MEDS: CHLORHEXIDINE 15 ML UDC MM SCH ×2 (08:52→21:26)
[2020-06-08] MEDS: ASPIRIN 81 MG TABLET EC PO SCH (08:52)
[2020-06-08] MEDS: DOCUSATE 100 MG CAPSULE PO SCH ×2 (08:52→21:25)
[2020-06-08] MEDS: CLOPIDOGREL 75 MG TABLET PO SCH (08:53)
[2020-06-08] MEDS: MUPIROCIN OINT 2%, 22GM NAS SCH ×2 (09:00→21:26)
[2020-06-08] MEDS: MAGNESIUM SULFATE 1 GM in SODIUM CHLORIDE 0.9% 100 ML IVPB SCH (13:18)
[2020-06-08 18:11] VITALS: BP 117/78
[2020-06-08] MEDS: HYDROcodone/APAP 5/325 TABLET PO PRN (18:32)
[2020-06-08 19:20] VITALS: BP 117/76
[2020-06-09 00:10] VITALS: BP 122/77
[2020-06-09] MEDS: KETOROLAC 30 MG/1 ML IVPush SCH ×4 (03:33→19:58)
[2020-06-09] MEDS: DAPTOMYCIN 750 MG in SODIUM CHLORIDE 0.9% 100 ML IV SCH (03:41)
[2020-06-09 04:05] LABS: BASOPHILS % (AUTO) 1 % (0-1); EOSINOPHILS % (AUTO) 1 % (1-7); LYMPHOCYTES % (AUTO) 32 % (22-44); MEAN CORPUSCULAR HEMOGLOBIN 31.8 pg (27.5-34.5); MEAN PLATELET VOLUME 7.5 fL (7.4-10.4); MONOCYTES % (AUTO) 8 % (2-9); NEUTROPHILS % (AUTO) 59 % (42-75); PLATELET COUNT 241 x10^3/uL (130-400); RED BLOOD COUNT 2.47 x10^6/uL (4.38-5.82); RED CELL DISTRIBUTION WIDTH 12.9 % (9.4-14.8)
[2020-06-09 04:06] LABS: MD NO
[2020-06-09 04:13] LABS: ANION GAP 4 mmol/L (5-15); CALCIUM 8.9 mg/dL (8.5-10.1); CHLORIDE 110 mmol/L (98-107); CREATININE 0.72 mg/dL (0.7-1.3)
[2020-06-09] MEDS ORDERED: ASPIRIN 81 MG TABLET EC PO SCH (06:00)
[2020-06-09] MEDS: CARVEDILOL 3.125 MG TABLET PO SCH ×2 (06:21→18:16)
[2020-06-09] MEDS: INSULIN LISPRO 100 UNITS/ML, PEN SQ-INSULIN SCH (07:00)
[2020-06-09 07:59] VITALS: BP 126/80
[2020-06-09] MEDS: CHLORHEXIDINE 15 ML UDC MM SCH (09:01)
[2020-06-09] MEDS: MUPIROCIN OINT 2%, 22GM NAS SCH ×2 (09:01→19:58)
[2020-06-09] MEDS: CLOPIDOGREL 75 MG TABLET PO SCH (09:01)
[2020-06-09] MEDS: DOCUSATE 100 MG CAPSULE PO SCH ×2 (09:01→19:58)
[2020-06-09] MEDS ORDERED: FUROSEMIDE 20 MG/2 ML IV SCH (09:30)
[2020-06-09 15:50] VITALS: BP 129/81
[2020-06-09] MEDS ORDERED: POTASSIUM CHLORIDE 10 MEQ TABLET.ER PO SCH (17:00)
[2020-06-09 18:15] VITALS: BP 127/86
[2020-06-09 20:14] VITALS: BP 119/73
[2020-06-10 00:40] VITALS: BP 117/76
[2020-06-10] MEDS: KETOROLAC 30 MG/1 ML IVPush SCH ×4 (03:47→21:34)
[2020-06-10] MEDS: DAPTOMYCIN 750 MG in SODIUM CHLORIDE 0.9% 100 ML IV SCH (03:47)
[2020-06-10 04:41] LABS: BASOPHILS % (AUTO) 0 % (0-1); EOSINOPHILS % (AUTO) 1 % (1-7); LYMPHOCYTES % (AUTO) 32 % (22-44); MD NO; MEAN CORPUSCULAR HEMOGLOBIN 31.9 pg (27.5-34.5); MEAN CORPUSCULAR HGB CONC 34.4 g/dL (33.2-36.2); MEAN PLATELET VOLUME 7.5 fL (7.4-10.4); MONOCYTES % (AUTO) 9 % (2-9); NEUTROPHILS % (AUTO) 58 % (42-75); PLATELET COUNT 306 x10^3/uL (130-400); RED BLOOD COUNT 2.59 x10^6/uL (4.38-5.82); RED CELL DISTRIBUTION WIDTH 12.8 % (9.4-14.8)
[2020-06-10 04:47] LABS: ANION GAP 7 mmol/L (5-15); CALCIUM 8.9 mg/dL (8.5-10.1); CHLORIDE 111 mmol/L (98-107); CREATININE 0.87 mg/dL (0.7-1.3)
[2020-06-10 05:32] VITALS: BP 128/82
[2020-06-10] MEDS: CARVEDILOL 3.125 MG TABLET PO SCH ×2 (05:33→18:11)
[2020-06-10 07:35] VITALS: BP 119/80
[2020-06-10] MEDS: CLOPIDOGREL 75 MG TABLET PO SCH (09:43)
[2020-06-10] MEDS: DOCUSATE 100 MG CAPSULE PO SCH ×2 (09:43→21:34)
[2020-06-10] MEDS: MUPIROCIN OINT 2%, 22GM NAS SCH ×2 (09:56→21:33)
[2020-06-10 14:36] VITALS: BP 124/65
[2020-06-10 18:11] VITALS: BP 125/82
[2020-06-10 20:00] VITALS: BP 126/82
[2020-06-11] MEDS: ONDANSETRON 2MG/ML, 2ML IVPush PRN ×2 (03:09→22:46)
[2020-06-11] MEDS: KETOROLAC 30 MG/1 ML IVPush SCH ×4 (03:10→21:18)
[2020-06-11] MEDS: DAPTOMYCIN 750 MG in SODIUM CHLORIDE 0.9% 100 ML IV SCH (03:11)
[2020-06-11 03:12] VITALS: BP 128/80
[2020-06-11 05:19] LABS: ANION GAP 4 mmol/L (5-15); CALCIUM 9.1 mg/dL (8.5-10.1); CHLORIDE 111 mmol/L (98-107)
[2020-06-11 05:21] LABS: CREATININE 0.92 mg/dL (0.7-1.3)
[2020-06-11 05:33] LABS: BASOPHILS % (AUTO) 1 % (0-1); EOSINOPHILS % (AUTO) 1 % (1-7); LYMPHOCYTES % (AUTO) 25 % (22-44); MEAN CORPUSCULAR HEMOGLOBIN 32.4 pg (27.5-34.5); MEAN CORPUSCULAR HGB CONC 34.7 g/dL (33.2-36.2); MONOCYTES % (AUTO) 8 % (2-9); NEUTROPHILS % (AUTO) 65 % (42-75); PLATELET COUNT 396 x10^3/uL (130-400); RED BLOOD COUNT 2.79 x10^6/uL (4.38-5.82); RED CELL DISTRIBUTION WIDTH 12.8 % (9.4-14.8)
[2020-06-11 05:37] LABS: MD NO
[2020-06-11] MEDS: CARVEDILOL 3.125 MG TABLET PO SCH ×2 (06:16→17:51)
[2020-06-11 06:45] VITALS: BP 129/84
[2020-06-11] MEDS: LACTOBACILLUS 1GM/ PACKET PO SCH ×3 (08:50→21:18)
[2020-06-11] MEDS: PROCHLORPERAZINE 5 MG/ML, 2ML IVPush PRN (08:51)
[2020-06-11] MEDS: DOCUSATE 100 MG CAPSULE PO SCH ×2 (08:51→21:18)
[2020-06-11] MEDS: MUPIROCIN OINT 2%, 22GM NAS SCH (08:51)
[2020-06-11] MEDS: CLOPIDOGREL 75 MG TABLET PO SCH (08:51)
[2020-06-11 12:40] VITALS: BP 147/88
[2020-06-11 16:45] LABS: ALBUMIN 2.4 g/dL (3.4-5.0); BILIRUBIN, DIRECT 0.1 mg/dL (0.1-0.2)
[2020-06-11 16:47] LABS: BILIRUBIN,INDIRECT 0.1 mg/dL (0.0-2.0); BILIRUBIN,TOTAL 0.2 mg/dL (0.2-1.0)
[2020-06-11 17:50] VITALS: BP 139/90
[2020-06-11 21:40] VITALS: BP 136/88
[2020-06-12 03:15] VITALS: BP 126/78
[2020-06-12] MEDS: KETOROLAC 30 MG/1 ML IVPush SCH (03:15)
[2020-06-12] MEDS: DAPTOMYCIN 750 MG in SODIUM CHLORIDE 0.9% 100 ML IV SCH (04:47)
[2020-06-12 05:36] LABS: HCT (SEDRATE) 24.5 % (39.2-51.8)
[2020-06-12 05:39] LABS: BASOPHILS % (AUTO) 1 % (0-1); EOSINOPHILS % (AUTO) 2 % (1-7); LYMPHOCYTES % (AUTO) 30 % (22-44); MEAN CORPUSCULAR HEMOGLOBIN 31.9 pg (27.5-34.5); MEAN CORPUSCULAR HGB CONC 34.3 g/dL (33.2-36.2); MONOCYTES % (AUTO) 7 % (2-9); NEUTROPHILS % (AUTO) 60 % (42-75); PLATELET COUNT 382 x10^3/uL (130-400); RED BLOOD COUNT 2.68 x10^6/uL (4.38-5.82)
[2020-06-12 05:43] LABS: CHLORIDE 109 mmol/L (98-107)
[2020-06-12 05:50] VITALS: BP 126/83
[2020-06-12] MEDS: CARVEDILOL 3.125 MG TABLET PO SCH (05:51)
[2020-06-12 05:52] LABS: MD NO
[2020-06-12 05:56] LABS: ALANINE AMINOTRANSFERASE 39 U/L (12-78); ALBUMIN 2.5 g/dL (3.4-5.0); ALKALINE PHOSPHATASE 130 U/L (45-117); ANION GAP 6 mmol/L (5-15); BILIRUBIN,TOTAL 0.3 mg/dL (0.2-1.0); CALCIUM 9.3 mg/dL (8.5-10.1); CREATINE KINASE, TOTAL 27 U/L (39-308); CREATININE 0.92 mg/dL (0.7-1.3); TOTAL PROTEIN 6.1 g/dL (6.4-8.2)
[2020-06-12 07:06] VITALS: BP 145/76
[2020-06-12] MEDS: DOCUSATE 100 MG CAPSULE PO SCH ×2 (07:48→20:18)
[2020-06-12] MEDS: CLOPIDOGREL 75 MG TABLET PO SCH (07:48)
[2020-06-12] MEDS: LACTOBACILLUS 1GM/ PACKET PO SCH ×3 (07:48→20:18)
[2020-06-12 13:36] VITALS: BP 132/88
[2020-06-12] MEDS: CARVEDILOL 6.25 MG TABLET PO SCH (17:47)
[2020-06-12] MEDS: ONDANSETRON 2MG/ML, 2ML IVPush PRN (17:57)
[2020-06-12] MEDS: HYDROcodone/APAP 5/325 TABLET PO PRN (20:17)
[2020-06-12 20:26] VITALS: BP 120/77
[2020-06-13 02:15] VITALS: BP 116/73
[2020-06-13] MEDS: DAPTOMYCIN 750 MG in SODIUM CHLORIDE 0.9% 100 ML IV SCH (04:50)
[2020-06-13 05:59] LABS: ANION GAP 5 mmol/L (5-15); CALCIUM 9.4 mg/dL (8.5-10.1); CHLORIDE 108 mmol/L (98-107)
[2020-06-13 06:01] LABS: CREATININE 1.02 mg/dL (0.7-1.3)
[2020-06-13 06:23] VITALS: BP 129/80
[2020-06-13] MEDS: CARVEDILOL 6.25 MG TABLET PO SCH ×2 (06:23→17:53)
[2020-06-13 07:30] VITALS: BP 128/83
[2020-06-13] MEDS: DOCUSATE 100 MG CAPSULE PO SCH ×2 (07:42→21:25)
[2020-06-13] MEDS: CLOPIDOGREL 75 MG TABLET PO SCH (07:42)
[2020-06-13] MEDS: LACTOBACILLUS 1GM/ PACKET PO SCH ×3 (07:42→21:26)
[2020-06-13 13:50] VITALS: BP 131/78
[2020-06-13] MEDS: ONDANSETRON 2MG/ML, 2ML IVPush PRN (21:25)
[2020-06-13] MEDS: HYDROcodone/APAP 10/325 MG TABLET PO PRN (21:32)
[2020-06-13 21:40] VITALS: BP 122/86
[2020-06-14 02:34] VITALS: BP 111/72
[2020-06-14] MEDS: PROCHLORPERAZINE 5 MG/ML, 2ML IVPush PRN (02:46)
[2020-06-14] MEDS: HYDROcodone/APAP 5/325 TABLET PO PRN ×2 (02:56→22:55)
[2020-06-14 03:21] LABS: ANION GAP 3 mmol/L (5-15); CALCIUM 9.3 mg/dL (8.5-10.1); CHLORIDE 108 mmol/L (98-107); CREATININE 0.92 mg/dL (0.7-1.3)
[2020-06-14] MEDS: DAPTOMYCIN 750 MG in SODIUM CHLORIDE 0.9% 100 ML IV SCH (03:34)
[2020-06-14 06:10] VITALS: BP 108/70
[2020-06-14] MEDS: CARVEDILOL 6.25 MG TABLET PO SCH ×2 (06:10→17:16)
[2020-06-14 07:55] VITALS: BP 119/73
[2020-06-14 08:32] LABS: % IRON SATURATION 18 % (20-55); IRON LEVEL 41 mcg/dL (65-175); TOTAL IRON BINDING CAPACITY 230 mcg/dL (250-450)
[2020-06-14] MEDS ORDERED: IRON DEXTRAN COMPLEX 25 MG in SODIUM CHLORIDE 0.9% 50 ML IV ONE (11:00)
[2020-06-14] MEDS: CLOPIDOGREL 75 MG TABLET PO SCH (11:06)
[2020-06-14] MEDS: DOCUSATE 100 MG CAPSULE PO SCH ×2 (11:06→22:54)
[2020-06-14] MEDS: LACTOBACILLUS 1GM/ PACKET PO SCH ×3 (11:06→22:54)
[2020-06-14] MEDS ORDERED: EPINEPHRINE 1 MG/ML, 1ML IM PRN (11:30)
[2020-06-14 12:22] VITALS: BP 124/75
[2020-06-14] MEDS ORDERED: IRON DEXTRAN COMPLEX 1,700 MG in SODIUM CHLORIDE 0.9% 250 ML IV ONE (17:00)
[2020-06-14] MEDS ORDERED: FAMOTIDINE 20 MG TABLET PO SCH (21:00)
[2020-06-14 22:38] VITALS: BP 117/73
[2020-06-15 02:06] VITALS: BP 116/75
[2020-06-15] MEDS: DAPTOMYCIN 750 MG in SODIUM CHLORIDE 0.9% 100 ML IV SCH (04:35)
[2020-06-15 05:10] LABS: ANION GAP 8 mmol/L (5-15); CALCIUM 9.9 mg/dL (8.5-10.1); CHLORIDE 105 mmol/L (98-107)
[2020-06-15 05:11] LABS: CREATININE 0.87 mg/dL (0.7-1.3)
[2020-06-15 05:48] VITALS: BP 131/85
[2020-06-15] MEDS: CARVEDILOL 6.25 MG TABLET PO SCH (05:51)
[2020-06-15 07:22] VITALS: BP 121/78
[2020-06-15] MEDS: DOCUSATE 100 MG CAPSULE PO SCH (08:29)
[2020-06-15] MEDS: LACTOBACILLUS 1GM/ PACKET PO SCH (08:29)
[2020-06-15] MEDS: CLOPIDOGREL 75 MG TABLET PO SCH (08:29)
[2020-06-15] MEDS ORDERED: FAMO20TA7 PO (12:09)
[2020-06-15] MEDS ORDERED: ACID1GRA3 PO (12:09)
[2020-06-15] MEDS ORDERED: CARV6.2512 PO (12:09)
[2020-06-15] MEDS ORDERED: CLOP75TA PO (12:09)
[2020-06-15 12:19] VITALS: BP 103/65
[2020-06-15] MEDS ORDERED: DAPT500V3 IV (12:46)
== END 2020-06-15 16:15 | disposition home or self-care (01) | DRG 853 ==
LOC: ED 12:28 → EDIP 13:50 → 4WST 05-25 08:08 → 3N 05-25 18:20 → 5SO 05-30 16:32 → CCU 06-06 07:09 → 5SO 06-08 18:06 → DCLOUNGE 06-15 16:04
PROVIDERS: ADMIT Internal Medicine; ATTEND Internal Medicine
PROC: B246ZZ4 Ultrasonography of Right and Left Heart, Transesophageal (ICD-10-PCS; 2020-05-30)
PROC: 02RF08Z Replacement of Aortic Valve with Zooplastic Tissue, Open Approach (ICD-10-PCS; 2020-06-06)
PROC: 02UX08Z Supplement Thoracic Aorta, Ascending/Arch with Zooplastic Tissue, Open Approach (ICD-10-PCS; 2020-06-06)
PROC: 02QG0ZZ Repair Mitral Valve, Open Approach (ICD-10-PCS; 2020-06-06)
PROC: 02UG08Z Supplement Mitral Valve with Zooplastic Tissue, Open Approach (ICD-10-PCS; 2020-06-06)
PROC: 30233R1 Transfusion of Nonautologous Platelets into Peripheral Vein, Percutaneous Approach (ICD-10-PCS; 2020-06-06)
PROC: 5A1221Z Performance of Cardiac Output, Continuous (ICD-10-PCS; 2020-06-06)
PROC: B246ZZ4 Ultrasonography of Right and Left Heart, Transesophageal (ICD-10-PCS; 2020-06-06)
PROC: 30233M1 Transfusion of Nonautologous Plasma Cryoprecipitate into Peripheral Vein, Percutaneous Approach (ICD-10-PCS; principal; 2020-06-06 07:30)
PROC: 02HV33Z Insertion of Infusion Device into Superior Vena Cava, Percutaneous Approach (ICD-10-PCS; 2020-06-11)
PROC: B548ZZA Ultrasonography of Superior Vena Cava, Guidance (ICD-10-PCS; 2020-06-11)
PROC: B518ZZA Fluoroscopy of Superior Vena Cava, Guidance (ICD-10-PCS; 2020-06-11)
DX: A41.1 Sepsis due to other specified staphylococcus (principal); I33.0 Acute and subacute infective endocarditis; J18.0 Bronchopneumonia, unspecified organism; J96.00 Acute respiratory failure, unspecified whether with hypoxia or hypercapnia; E87.1 Hypo-osmolality and hyponatremia; Z99.11 Dependence on respirator [ventilator] status; I76 Septic arterial embolism; D64.9 Anemia, unspecified; D73.5 Infarction of spleen; Z20.822 Contact with and (suspected) exposure to COVID-19; E88.09 Other disorders of plasma-protein metabolism, not elsewhere classified; F17.210 Nicotine dependence, cigarettes, uncomplicated; F43.23 Adjustment disorder with mixed anxiety and depressed mood; G89.29 Other chronic pain; M54.9 Dorsalgia, unspecified; M41.9 Scoliosis, unspecified; R73.9 Hyperglycemia, unspecified; Z88.6 Allergy status to analgesic agent; Z71.6 Tobacco abuse counseling
CPT/HCPCS: 36415; 36600; 84145; 96365; 96375; 99285; J3490; S0017; 36573; 71045; 71046; 71275; 72146; 72158; 80048; 80053; 80076; 80307; 81003; 82040; 82330; 82550; 82728; 82800; 82803; 82810; 82947; 82962; 83036; 83540; 83550; 83605; 83615; 83735; 84132; 84295; 84484; 85014; 85018; 85025; 85049; 85347; 85379; 85384; 85610; 85651; 85730; 86140; 86850; 86900; 86923; 87015; 87040; 87070; 87075; 87077; 87081; 87102; 87116; 87176; 87186; 87205; 87206; 87635; 88305; 93005; 93306; 93312; 93321; 93325; 93970; 94002; 94150; C1768; G0378; J0171; J0690; J0696; J0697; J0878; J1644; J1650; J1750; J1815; J1885; J2250; J2405; J2704; J2720; J3010; J3370; J3475; J3480; P9045; P9047; Q9967; C1751; C1760; J0282; J0780; J1940; J2370; J2930; J7030; J7040; J7050; P9012; P9035; U0003

== ENCOUNTER 2020-07-01 15:13 | Emergency (ER) | payer SELFPAY ==
[~2020-07-01] VITALS: Ht 182.9 cm; Wt 90.0 kg
[~2020-07-01 15:13] MED LIST: ACID1GRA3 PO; CARV6.2512 PO; CLOP75TA PO; DAPT500V3 IV; FAMO20TA7 PO
--- NOTE | 2020-07-01 15:36 | NUR ---
PT BIB [facility] VIA POV FOR ABX INFUSION. PT WAS SEEN HERE LAST MONTH FOR ENDOCARDITIS, HAD HEART SURGERY, AND NOW COMES DAILY FOR ABX INFUSIONS. PT HAS BEEN HAVING URINARY PAIN AND URINE IS BLOODY FOR PAST 4 HOURS. PT ALSO IS HAVING URGENCY AND FREQUENCY. PT RESTING IN RNEY, MONITORING IN PLACE, EKG DONE, URINE SAMPLE COLLECTED AND SENT TO LAB, LUCY AT THIS TIME, [facility].
[2020-07-01 16:46] LABS: BASOPHILS % (AUTO) 0 % (0-1); EOSINOPHILS % (AUTO) 1 % (1-7); LYMPHOCYTES % (AUTO) 17 % (22-44); MEAN CORPUSCULAR HEMOGLOBIN 31.7 pg (27.5-34.5); MEAN CORPUSCULAR HGB CONC 33.9 g/dL (33.2-36.2); MEAN PLATELET VOLUME 7.7 fL (7.4-10.4); MONOCYTES % (AUTO) 7 % (2-9); NEUTROPHILS % (AUTO) 75 % (42-75); PLATELET COUNT 294 x10^3/uL (130-400); RED BLOOD COUNT 3.82 x10^6/uL (4.38-5.82); RED CELL DISTRIBUTION WIDTH 14.4 % (9.4-14.8)
[2020-07-01 16:56] LABS: ALANINE AMINOTRANSFERASE 35 U/L (12-78); ALBUMIN 3.7 g/dL (3.4-5.0); ANION GAP 4 mmol/L (5-15); CALCIUM 9.3 mg/dL (8.5-10.1); CHLORIDE 111 mmol/L (98-107); CREATININE 0.88 mg/dL (0.7-1.3)
[2020-07-01 16:58] LABS: MICROSCOPIC INDICATED
[2020-07-01 16:58] LABS: ALKALINE PHOSPHATASE 132 U/L (45-117); BILIRUBIN,TOTAL 0.3 mg/dL (0.2-1.0); CREATINE KINASE, TOTAL 43 U/L (39-308); TOTAL PROTEIN 7.2 g/dL (6.4-8.2)
[2020-07-01 17:03] LABS: MD NO
[2020-07-01] MEDS ORDERED: CEFTRIAXONE 1,000 MG IM ONE (17:30)
[2020-07-01] MEDS ORDERED: CEFTRIAXONE 1,000 MG ONE (17:47)
[2020-07-01 18:08] VITALS: BP 135/89
== END 2020-07-01 18:10 | disposition home or self-care (01) ==
LOC: ED 15:34
DX: N30.01 Acute cystitis with hematuria (principal); R00.0 Tachycardia, unspecified; I45.10 Unspecified right bundle-branch block; Z87.891 Personal history of nicotine dependence; Z95.4 Presence of other heart-valve replacement
CPT/HCPCS: 36415; 80053; 81001; 82550; 85025; 87077; 87086; 87186; 93005; 96372; 99284; J0696